=== PATIENT | female | born 1990 | race Caucasian/White ===

== ENCOUNTER 2018-09-14 08:59 | Inpatient (IN) | payer MEDICAID ==
[~2018-09-14] VITALS: Ht 165.1 cm; Wt 61.2 kg
[2018-09-14] MEDS ORDERED: KETOROLAC TROMETHAMINE INJ 30 MG/ML VIAL ONE (09:15)
[2018-09-14] MEDS ORDERED: ONDANSETRON HCL/PF 4 MG/2 ML VIAL ONE (09:15)
[2018-09-14] MEDS ORDERED: IV NS 0.9% 1,000 ML BAG IV ONE (09:30)
[2018-09-14] MEDS ORDERED: ONDANSETRON HCL/PF 4 MG/2 ML VIAL IVP ONE (09:30)
[2018-09-14] MEDS ORDERED: KETOROLAC TROMETHAMINE INJ 30 MG/ML VIAL IV ONE (09:30)
[2018-09-14 09:41] LABS: BASOPHILS # (AUTO) 0.1 /CMM (0.0-0.2); BASOPHILS % (AUTO) 0.4 % (0.0-2.0); EOSINOPHILS % (AUTO) 0.2 % (0.0-6.0); HEMATOCRIT 42 % (33-45); HEMOGLOBIN 14.5 g/dL (11.5-14.8); LYMPHOCYTES # (AUTO) 0.9 /CMM (0.8-4.8); LYMPHOCYTES % (AUTO) 6.5 % (20.0-44.0); MEAN CORPUSCULAR HGB CONC 35 g/dl (31.0-36.0); MEAN CORPUSCULAR VOLUME 98 fL (82-100); MONOCYTES # (AUTO) 0.7 /CMM (0.1-1.30); MONOCYTES % (AUTO) 5.3 % (2.0-12.0); NEUTROPHILS # (AUTO) 11.7 /CMM (1.8-8.9); NEUTROPHILS % (AUTO) 87.6 % (43.0-81.0); PLATELET COUNT (AUTO) 285 /CMM (150-450); RED BLOOD CELL COUNT(AUTO) 4.28 MIL/uL (4.0-5.2); WHITE BLOOD COUNT (AUTO) 13.4 K/uL (4.3-11.0)
[2018-09-14 10:04] LABS: CALCIUM, SERUM 9.2 mg/dL (8.5-10.1); CARBON DIOXIDE 27 mmol/L (21-32); CHLORIDE 98 mmol/L (98-107); CREATININE 0.8 mg/dL (0.6-1.3); GLUCOSE 121 mg/dL (74-106); POTASSIUM 3.9 mmol/L (3.5-5.1); SODIUM SERUM 130 mmol/L (136-145); UREA NITROGEN, BLOOD 7 mg/dL (7-18)
[2018-09-14 10:05] LABS: APPEARANCE,URINE Clear (CLEAR); BILIRUBIN,URINE Negative (NEGATIVE); BLOOD, URINE Trace-lysed Ery/uL (NEGATIVE); COLOR,URINE Yellow (YELLOW); KETONES,URINE Negative (NEGATIVE); LEUKOCYTE ESTERASE ,URINE Negative (NEGATIVE); NITRITE, URINE Negative (NEGATIVE); PROTEIN,URINE Negative (NEGATIVE); UGLUCOSE Negative (NEGATIVE); UROBILINOGEN,URINE 0.2 EU/dL (0.2)
[2018-09-14 10:10] LABS: BACTERIA,URINE Few /HPF (None Seen); RBC,URINE 0-2 /HPF (0-2); SQUAMOUS EPITHELIAL CELL,UR Few /HPF (None Seen); WBC,URINE 0-2 /HPF (0-3)
[2018-09-14 10:11] LABS: ALANINE AMINOTRANSFERASE 21 U/L (12-78); ALBUMIN 3.8 g/dL (3.4-5.0); ALKALINE PHOSPHATASE 47 U/L (46-116); ASPARTATE AMINOTRANSFERASE 20 U/L (15-37); BILIRUBIN,DIRECT 0.2 mg/dL (0.0-0.2); BILIRUBIN,TOTAL 0.6 mg/dL (0.2-1.0); LIPASE 131 U/L (73-393); TOTAL PROTEIN, SERUM 7.7 g/dL (6.4-8.2)
[2018-09-14] MEDS ORDERED: PIPERACILLIN /TAZOBACTAM 3.375 G in IV D5W 50 ML IV ONE (11:30)
[2018-09-14] MEDS ORDERED: LEVOFLOXACIN 750 MG /D5W 150ML 150 ML IV ONE ×2 (11:39→12:00)
[2018-09-14] MEDS ORDERED: METRONIDAZOLE 500MG/ NS 100ML 100 ML IV ONE ×2 (11:39→12:00)
[2018-09-14] MEDS ORDERED: FENTANYL PF 100MCG/2ML AMPUL ONE ×2 (13:38→15:20)
[2018-09-14] MEDS ORDERED: MIDAZOLAM HCL 2 MG/2ML VIAL ONE (13:38)
[2018-09-14] MEDS ORDERED: SCOPOLAMINE HBR 1 EA PATCH.TD72 TD ONE (13:38)
[2018-09-14] MEDS ORDERED: BUPIVACAINE 0.5 % PF 150 MG/30 ML VIAL ONE (14:02)
[2018-09-14] MEDS ORDERED: BUPIVACAINE MPF 0.5% W/EPI INJ 30 ML VIAL ONE (14:02)
[2018-09-14] MEDS ORDERED: LIDOCAINE HCL/PF 1% 30 ML SDV ONE (14:02)
[2018-09-14] MEDS ORDERED: HYDROCODONE/APAP 5/325MG 1 EACH TABLET PO PRN (15:30)
[2018-09-14] MEDS ORDERED: IBUPROFEN 600 MG TABLET PO PRN (15:30)
[2018-09-14] MEDS ORDERED: ACETAMINOPHEN 325 MG TABLET PO PRN (15:30)
[2018-09-14] MEDS ORDERED: MORPHINE SULFATE INJ 2 MG/ML DISP.SYRIN IV PRN (15:30)
[2018-09-14] MEDS ORDERED: ONDANSETRON HCL/PF 4 MG/2 ML VIAL IV PRN (15:30)
[2018-09-14 15:45] VITALS: BP 97/67
[2018-09-14 16:00] VITALS: BP 97/67
[2018-09-14] MEDS ORDERED: MAGNESIUM HYDROXIDE 30 ML UDC PO PRN (17:00)
[2018-09-14] MEDS ORDERED: Z GUARD REMEDY 2 OZ OINT TP PRN (17:00)
[2018-09-14] MEDS ORDERED: ZOLPIDEM TARTRATE 5 MG TABLET PO PRN (17:00)
[2018-09-14] MEDS ORDERED: IV NS 0.9% 1,000 ML IV PRN (17:00)
[2018-09-14] MEDS: HYDROCODONE/APAP 5/325MG 1 EACH TABLET PO PRN (17:05)
[2018-09-14] MEDS: METRONIDAZOLE 500MG/ NS 100ML 500 MG in PREMIX 1 EA IV SCH ×2 (18:19→23:44)
[2018-09-14 20:00] VITALS: BP 91/58
[2018-09-15] MEDS: HYDROCODONE/APAP 5/325MG 1 EACH TABLET PO PRN (05:13)
[2018-09-15] MEDS: METRONIDAZOLE 500MG/ NS 100ML 500 MG in PREMIX 1 EA IV SCH (05:20)
[2018-09-15 07:46] LABS: BASOPHILS % (AUTO) 0.2 % (0.0-2.0); EOSINOPHILS % (AUTO) 0.4 % (0.0-6.0); HEMATOCRIT 34 % (33-45); HEMOGLOBIN 11.9 g/dL (11.5-14.8); LYMPHOCYTES # (AUTO) 1.4 /CMM (0.8-4.8); LYMPHOCYTES % (AUTO) 15.4 % (20.0-44.0); MEAN CORPUSCULAR HGB CONC 35 g/dl (31.0-36.0); MEAN CORPUSCULAR VOLUME 98 fL (82-100); MONOCYTES # (AUTO) 0.8 /CMM (0.1-1.30); MONOCYTES % (AUTO) 8.9 % (2.0-12.0); NEUTROPHILS # (AUTO) 6.6 /CMM (1.8-8.9); NEUTROPHILS % (AUTO) 75.1 % (43.0-81.0); PLATELET COUNT (AUTO) 217 /CMM (150-450); RED BLOOD CELL COUNT(AUTO) 3.43 MIL/uL (4.0-5.2); WHITE BLOOD COUNT (AUTO) 8.8 K/uL (4.3-11.0)
[2018-09-15 08:00] VITALS: BP 99/57
[2018-09-15 08:03] LABS: CALCIUM, SERUM 8.3 mg/dL (8.5-10.1); MAGNESIUM 1.7 mg/dL (1.8-2.4); PHOSPHORUS 3.4 mg/dL (2.5-4.9); POTASSIUM 3.6 mmol/L (3.5-5.1)
[2018-09-15] MEDS: Magnesium 1GM/D5W 100ML PREMIX 100 ML IV SCH ×2 (09:35→10:41)
[2018-09-15] MEDS ORDERED: METR500T PO (10:14)
[2018-09-15] MEDS ORDERED: LEVO500T75 PO (10:14)
[2018-09-15] MEDS ORDERED: HYDR-4384 PO (10:14)
[2018-09-15] MEDS ORDERED: METRONIDAZOLE 250 MG TABLET PO SCH (12:00)
[2018-09-15] MEDS ORDERED: METRONIDAZOLE 500 MG TABLET PO SCH (12:00)
[2018-09-15] MEDS ORDERED: LEVOFLOXACIN (500MG) 500 MG TABLET PO SCH (12:00)
[2018-09-15] MEDS ORDERED: SIMETHICONE 80 MG TAB.CHEW PO ONE (12:30)
[2018-09-15] MEDS ORDERED: LEVOFLOXACIN 500 MG /D5W 100ML 500 MG in PREMIX 1 EA IV SCH (13:00)
== END 2018-09-15 14:00 | disposition home or self-care (01) | DRG 227 ==
LOC: ER 08:59 → MED 12:24
PROVIDERS: ADMIT Nurse Practitioner Acute Care; ATTEND Nurse Practitioner Acute Care
PROC: 0WQF4ZZ Repair Abdominal Wall, Percutaneous Endoscopic Approach (ICD-10-PCS; principal; 2018-09-14)
PROC: 0DTJ4ZZ Resection of Appendix, Percutaneous Endoscopic Approach (ICD-10-PCS; principal; 2018-09-14)
DX: K35.80 Unspecified acute appendicitis (principal); E83.42 Hypomagnesemia; D72.829 Elevated white blood cell count, unspecified; K43.9 Ventral hernia without obstruction or gangrene; M79.7 Fibromyalgia; K58.9 Irritable bowel syndrome, unspecified; E87.1 Hypo-osmolality and hyponatremia; E86.0 Dehydration; K38.1 Appendicular concretions
CPT/HCPCS: 36415; 80048-TC; 80061-TC; 80076-TC; 81000-TC; 83690-TC; 83735-TC; 84100-TC; 84484-TC; 84703-TC; 85025-TC; 87081-TC; 88304-TC; A4216; G0378; J1100; J1885; J1956; J2250; J2270; J2405; J2543; J2704; J3010; J3475; J3490; J7030; J7050; J7060

== ENCOUNTER 2021-11-19 02:19 | Emergency (ER) | payer MEDICAID ==
[~2021-11-19] VITALS: Ht 167.6 cm; Wt 59.0 kg
[~2021-11-19 02:19] MED LIST: HYDR-4384 PO; LEVO500T23 PO; METR500T PO
[2021-11-19 02:34] VITALS: BP 124/70
--- NOTE | 2021-11-19 02:41 | NUR ---
TEST GRADER AT BEDSIDE FOR WOUND CARE
== END 2021-11-19 02:58 | disposition home or self-care (01) ==
LOC: ER 02:32
DX: S61.305A Unspecified open wound of left ring finger with damage to nail, initial encounter (principal); M79.7 Fibromyalgia; Z88.8 Allergy status to other drugs, medicaments and biological substances; Z60.2 Problems related to living alone; Z79.899 Other long term (current) drug therapy; W22.8XXA Striking against or struck by other objects, initial encounter; Y93.89 Activity, other specified; Y92.89 Other specified places as the place of occurrence of the external cause; Y99.0 Civilian activity done for income or pay

== ENCOUNTER 2022-01-20 22:49 | Emergency (ER) | payer MEDICAID ==
[~2022-01-20] VITALS: Ht 167.6 cm; Wt 59.0 kg
--- NOTE | 2022-01-21 00:01 | NUR ---
BIBS WITH MULTIPLE C/O FEVER, DIARRHEA DIFF ABDOMINAL PAIN X2 DAYS ALSO C/O BODY ACHED PAIN AND TROUBLE URINATING WITH GERD. PLACED COMFORTABLY IN BED. VITALS CHECKED.
--- NOTE | 2022-01-21 00:10 | NUR ---
URINE SPECIMEN SENT TO LAB
[2022-01-21 00:27] LABS: BILIRUBIN,URINE NEGATIVE (NEGATIVE); COLOR,URINE YELLOW (YELLOW); LEUKOCYTE ESTERASE ,URINE NEGATIVE (NEGATIVE); NITRITE, URINE NEGATIVE (NEGATIVE); PH,URINE 6.5 (5.0-8.0); PROTEIN,URINE NEGATIVE (NEGATIVE); UGLUCOSE NEGATIVE (NEGATIVE); UROBILINOGEN,URINE 0.2 EU/dL (0.2)
[2022-01-21 00:56] LABS: BACTERIA,URINE Rare /HPF (None Seen); SQUAMOUS EPITHELIAL CELL,UR Few /HPF (None Seen); WBC,URINE 0-2 /HPF (0-3)
[2022-01-21] MEDS ORDERED: FAMOTIDINE (20 MG) 20 MG TABLET ONE (00:59)
[2022-01-21] MEDS ORDERED: MAG HYDROX/AL HYDROX/SIMETH 30 ML UDC ONE (00:59)
[2022-01-21] MEDS ORDERED: ONDANSETRON 4 MG TAB.RAPDIS ONE (01:00)
[2022-01-21] MEDS ORDERED: FAMOTIDINE (20 MG) 20 MG TABLET PO ONE (01:00)
[2022-01-21] MEDS ORDERED: ONDANSETRON 4 MG TAB.RAPDIS SL ONE (01:00)
[2022-01-21] MEDS ORDERED: MAG HYDROX/AL HYDROX/SIMETH 30 ML UDC PO ONE (01:00)
[2022-01-21] MEDS ORDERED: FAMO20TA8 PO (01:43)
[2022-01-21] MEDS ORDERED: ONDA4TAB5 PO (01:43)
[2022-01-21 01:51] VITALS: BP 109/76
--- NOTE | 2022-01-21 01:51 | NUR ---
Patient discharged to home in stable condition. Written and verbal after care instructions given. Patient verbalizes understanding of instruction.
== END 2022-01-21 01:51 | disposition home or self-care (01) ==
LOC: ER 22:58
DX: K29.70 Gastritis, unspecified, without bleeding (principal); M79.7 Fibromyalgia; Z88.8 Allergy status to other drugs, medicaments and biological substances; Z60.2 Problems related to living alone; Z79.899 Other long term (current) drug therapy
CPT/HCPCS: 81001; 84703; 99284; Q0162

== ENCOUNTER 2025-02-17 17:03 | Inpatient (IN) | payer MEDICAID ==
[~2025-02-17] VITALS: Ht 167.6 cm; Wt 59.0 kg
[~2025-02-17 17:03] MED LIST changes: +FAMO20TA8 PO; +ONDA4TAB5 PO
[2025-02-17] MEDS ORDERED: PANTOPRAZOLE 40 MG VIAL ONE (18:21)
[2025-02-17] MEDS ORDERED: METOCLOPRAMIDE HCL 10 MG/2 ML VIAL ONE (18:21)
[2025-02-17] MEDS ORDERED: FAMOTIDINE/PF INJ 20 MG/2 ML VIAL IV ONE (18:22)
[2025-02-17 18:26] LABS: PLATELET COUNT (AUTO) 325 K/uL (150-450); RED BLOOD CELL COUNT(AUTO) 4.58 MIL/uL (4.0-5.2); RED CELL DISTRIBUTION WIDTH 11.9 % (11.5-15.0); WHITE BLOOD COUNT (AUTO) 14.0 K/uL (4.3-11.0)
[2025-02-17] MEDS: FAMOTIDINE/PF INJ 20 MG/2 ML VIAL IV ONE (18:26)
[2025-02-17] MEDS ORDERED: PANTOPRAZOLE 40 MG VIAL IV ONE (18:30)
[2025-02-17] MEDS: METOCLOPRAMIDE HCL 10 MG/2 ML VIAL IV ONE (18:40)
[2025-02-17 18:43] LABS: ASPARTATE AMINOTRANSFERASE 22.0 U/L (15-37); CALCIUM, SERUM 9.4 mg/dL (8.5-10.1); CREATININE 0.7 mg/dL (0.6-1.3); SODIUM SERUM 133.0 mmol/L (136-145); TOTAL PROTEIN, SERUM 7.8 g/dL (6.4-8.2); UREA NITROGEN, BLOOD 15.0 mg/dL (7-18)
[2025-02-17] MEDS: IV NS 0.9% 1,000 ML BAG IV ONE (18:44)
[2025-02-17] MEDS ORDERED: POTASSIUM CL. PREMIX PERIPHER. 50 ML ONE (18:52)
[2025-02-17] MEDS: POTASSIUM CL. PREMIX PERIPHER. 50 ML IV SCH (19:10)
[2025-02-17] MEDS: PANTOPRAZOLE 80 MG in IV NS 0.9% 100 ML IV ONE (19:22)
[2025-02-17] MEDS ORDERED: POTASSIUM CL. PREMIX PERIPHER. 150 ML ONE (19:42)
[2025-02-17 21:30] VITALS: BP 122/81; TEMP 98.1; O2SAT 97
[2025-02-17] MEDS ORDERED: MAGNESIUM HYDROXIDE 30 ML UDC PO PRN (21:30)
[2025-02-17] MEDS ORDERED: MAG HYDROX/AL HYDROX/SIMETH 30 ML UDC PO PRN (21:30)
[2025-02-17 21:45] VITALS: BP 122/81; TEMP 98.1; O2SAT 97
[2025-02-17] MEDS: IV NS 0.9% 1,000 ML IV SCH (21:55)
[2025-02-17] MEDS: ONDANSETRON HCL/PF 4 MG/2 ML VIAL IVP PRN (23:07)
[2025-02-18] MEDS: PANTOPRAZOLE 80 MG in IV NS 0.9% 500 ML IV PRN (05:21)
[2025-02-18 06:44] LABS: PLATELET COUNT (AUTO) 284 K/uL (150-450); RED BLOOD CELL COUNT(AUTO) 4.09 MIL/uL (4.0-5.2); RED CELL DISTRIBUTION WIDTH 12.2 % (11.5-15.0); WHITE BLOOD COUNT (AUTO) 9.9 K/uL (4.3-11.0)
[2025-02-18 08:00] VITALS: BP 136/97; TEMP 97.5; O2SAT 95
[2025-02-18 08:01] VITALS: BP 115/64; TEMP 97.9; O2SAT 98
[2025-02-18 08:21] LABS: CREATININE 0.7 mg/dL (0.6-1.3); PHOSPHORUS 2.9 mg/dL (2.5-4.9); SODIUM SERUM 141.0 mmol/L (136-145)
[2025-02-18 08:34] LABS: CALCIUM, SERUM 8.2 mg/dL (8.5-10.1); UREA NITROGEN, BLOOD 10.0 mg/dL (7-18)
[2025-02-18] MEDS: PANTOPRAZOLE 40 MG VIAL IV SCH (09:00)
[2025-02-18] MEDS: ACETAMINOPHEN 325 MG TABLET PO PRN (10:04)
[2025-02-18] MEDS: POTASSIUM CL. PREMIX PERIPHER. 50 ML IV SCH (11:06)
[2025-02-18] MEDS ORDERED: PANT40TA2 PO (12:48)
[2025-02-18] MEDS: POTASSIUM CHLORIDE 10 MEQ TABLET.SA PO ONE (13:36)
[2025-02-18] MEDS ORDERED: PANTOPRAZOLE 40 MG VIAL IV SCH (21:00)
== END 2025-02-18 15:09 | disposition left against medical advice (07) | DRG 242 ==
LOC: ER 17:11 → TELE 20:43 → MED 20:43 → TELE 21:14 → MED 23:38
PROVIDERS: ATTEND Nurse Practitioner Family
DX: K22.6 Gastro-esophageal laceration-hemorrhage syndrome (principal); E86.0 Dehydration; E87.6 Hypokalemia; M79.7 Fibromyalgia; Z88.0 Allergy status to penicillin; Z88.8 Allergy status to other drugs, medicaments and biological substances; Z91.040 Latex allergy status; Z79.899 Other long term (current) drug therapy; F19.90 Other psychoactive substance use, unspecified, uncomplicated; F10.90 Alcohol use, unspecified, uncomplicated; Y90.9 Presence of alcohol in blood, level not specified
CPT/HCPCS: 36415; 71045-TC; 80048-TC; 80053-TC; 83690-TC; 83735-TC; 84100-TC; 84702-TC; 85025-TC; A4223; G0378; J1308; J2405; J2470; J2765; J3480; J7030; J7040; J7050